=== PATIENT | male | born 1960 | race Caucasian/White ===

== ENCOUNTER 2020-09-25 09:09 | Outpatient (CLI) | payer MEDICARE, MEDICAID, SELFPAY | END 2020-09-25 09:10 | disposition home or self-care (01) | DX: H91.93 Unspecified hearing loss, bilateral (principal) | CPT/HCPCS: 92557; 92567 ==

== ENCOUNTER 2023-10-14 10:19 | Outpatient (CLI) | payer MEDICARE, MEDICAID, SELFPAY | END 2023-10-14 10:20 | disposition home or self-care (01) | LOC: ANHBWCAUD 10:20 | DX: H91.93 Unspecified hearing loss, bilateral (principal) | CPT/HCPCS: 92567 ==

== ENCOUNTER 2023-10-28 09:05 | Outpatient (CLI) | payer MEDICARE, MEDICAID, SELFPAY | END 2023-10-28 09:06 | disposition home or self-care (01) | LOC: ANHBWCAUD 09:05 | DX: H90.3 Sensorineural hearing loss, bilateral (principal) | CPT/HCPCS: 92557; 92567 ==